=== PATIENT | female | born 1945 | race Caucasian/White ===

== ENCOUNTER → 2017-04-09 | Outpatient (CLI) | payer MEDICARE ==
[~2017-04-09] MED LIST: ACET65TA OR; ASPI325T OR; BISA10SU2 RE; BISA5TA OR; COLA100C2 OR; LEVO100T7 OR; LIDO5DIS EX; LISI40TA OR; MILKSUS OR; MULTIVIT OR; PEPC20TA2 OR; SIMV20TA2 OR; SYNT100T OR; TERA5CAP OR; metamucil OR
--- NOTE | 2017-04-09 10:17 | REP ---
MR angiography the brain without contrast: History: Cerebral aneurysm. Comparison MR angiography is from December 18, 2015. Technique: 3-D [id number] MR angiography of the brain is acquired in the usual fashion and maximal intensity projection images were generated in rotational format about the vertical and horizontal axes. In addition, source axial T1-weighted images are viewed in cine mode. MR angiographic findings: The distal vertebral arteries are patent and co-dominant. Basilar artery is a little tortuous but widely patent. The posterior cerebral and superior cerebellar vessels are normal and symmetric. The distal internal carotid arteries are unremarkable. Eastman aneurysms are again seen involving the middle cerebral arteries bilaterally. The largest of these on the left measures 4 mm in greatest diameter. On the left, there is also a 3 mm eastman aneurysm. On the right, the aneurysm is again seen measuring 3 mm. These are unchanged from comparison MR angiography of December 18, 2015. Impression: Bilateral middle cerebral artery eastman aneurysms, two on the left and one on the right again seen unchanged from the comparison MRA study. Otherwise unremarkable MR angiography of the brain. Signed by Jaime Marie MD 04/09/2017 03:22 P
== END ==
LOC: M RAD 09:06
PROVIDERS: ATTEND Neurological Surgery
DX: I67.1 Cerebral aneurysm, nonruptured (principal)

== ENCOUNTER → 2017-08-05 | Outpatient (CLI) | payer MEDICARE ==
--- NOTE | 2017-08-05 17:54 | REP ---
Left hip: Two views: History: Left hip pain. Findings: AP and frog-leg views of the left hip demonstrate smooth rounded femoral head and intact hip joint space. Periarticular soft tissues are unremarkable. No erosive changes seen. No fracture is noted. There is mild diffuse osteopenia. Impression: Diffuse osteopenia. Otherwise negative left hip radiographs. Signed by Jaime Marie MD 08/06/2017 02:17 P
== END ==
LOC: M ADAMS 16:35
PROVIDERS: ATTEND Physician Assistant Medical
DX: M85.88 Other specified disorders of bone density and structure, other site (principal); E78.4 Other hyperlipidemia; E03.9 Hypothyroidism, unspecified; I67.1 Cerebral aneurysm, nonruptured; I11.0 Hypertensive heart disease with heart failure; I50.32 Chronic diastolic (congestive) heart failure; R73.01 Impaired fasting glucose; M25.552 Pain in left hip; Z87.891 Personal history of nicotine dependence; Z86.73 Personal history of transient ischemic attack (TIA), and cerebral infarction without residual deficits

== ENCOUNTER → 2017-08-05 | Outpatient (REF) | payer MEDICARE ==
[2017-08-05 21:00] LABS: BASO # 0.1 10^3/uL (0.0-0.2); BASO % 0.8 % (0.0-1.0); EOS # 0.1 10^3/uL (0.0-0.50); EOS % 1.1 % (0.0-3.0); IMMATURE GRANULOCYTE % 0.5 % (0-0); LYMPH # 2.1 10^3/uL (1.5-4.5); LYMPH % 27.8 % (24.0-44.0); MEAN CORPUSCULAR HEMOGLOBIN 31.6 pg (27.0-33.0); MEAN CORPUSCULAR HGB CONC 33.6 g/dl (32.0-36.5); MEAN CORPUSCULAR VOLUME 94.1 fl (80.0-96.0); MONO # 0.6 10^3/uL (0.0-0.8); MONO % 8.4 % (0.0-5.0); NEUTROPHILS # 4.6 10^3/uL (1.8-7.7); NEUTROPHILS % 61.4 % (36.0-66.0); PLATELET COUNT, AUTOMATED 341 10^3/uL (150-450); RED CELL DISTRIBUTION WIDTH 12.7 % (11.5-14.5); WHITE BLOOD COUNT 7.5 10^3/uL (4.0-10.0)
[2017-08-05 21:31] LABS: ALBUMIN 3.7 GM/DL (3.2-5.2); ALBUMIN/GLOBULIN RATIO 1.06 (1.00-1.93); BILIRUBIN,TOTAL 0.3 MG/DL (0.2-1.0); CALCIUM LEVEL 9.1 MG/DL (8.8-10.2); CREATININE FOR GFR 1.03 MG/DL (0.55-1.02); FREE T4 1.07 NG/DL (0.76-1.46); GLOMERULAR FILTRATION RATE 55.9 (>39); POTASSIUM SERUM 4.4 MEQ/L (3.5-5.1); TOTAL PROTEIN 7.2 GM/DL (6.4-8.2)
== END ==
LOC: M SFHCADAM 16:21
PROVIDERS: ATTEND Physician Assistant Medical
DX: E78.4 Other hyperlipidemia (principal); E03.9 Hypothyroidism, unspecified; I67.1 Cerebral aneurysm, nonruptured; R73.01 Impaired fasting glucose

== ENCOUNTER 2018-05-08 17:13 | Inpatient (IN) | payer MEDICARE ==
[2018-05-08] MEDS: ACETAMINOPHEN TAB 650MG DOSE (2X325MG) PO (18:55)
[2018-05-08] MEDS: PANTOPRAZOLE 40MG INJ (PROTONIX) (C9113) IV (20:09)
[2018-05-08] MEDS: KCL 20MEQ in NS 1000ML 1,000 ML IV (20:10)
[2018-05-09] MEDS: ONDANSETRON 4MG/2ML VIAL (J2405) IV ×3 (03:00→17:45)
[2018-05-09] MEDS: LEVOTHYROXINE 75MCG TABLET (0.075MG) PO (06:02)
[2018-05-09 06:27] LABS: BASO # 0.1 10^3/uL (0.0-0.2); BASO % 0.7 % (0.0-1.0); EOS # 0.1 10^3/uL (0.0-0.50); EOS % 0.6 % (0.0-3.0); HEMATOCRIT 29.4 % (36.0-47.0); HEMOGLOBIN 9.6 g/dl (12.0-15.5); IMMATURE GRANULOCYTE % 0.7 % (0-3.0); LYMPH # 1.2 10^3/uL (1.5-4.5); LYMPH % 13.4 % (24.0-44.0); MEAN CORPUSCULAR HEMOGLOBIN 28.1 pg (27.0-33.0); MEAN CORPUSCULAR HGB CONC 32.7 g/dl (32.0-36.5); MONO # 0.9 10^3/uL (0.0-0.8); MONO % 10.6 % (0.0-5.0); NEUTROPHILS # 6.5 10^3/uL (1.8-7.7); RED BLOOD COUNT 3.42 10^6/uL (4.00-5.40); WHITE BLOOD COUNT 8.8 10^3/uL (4.0-10.0)
[2018-05-09 06:47] LABS: PLATELET COUNT, AUTOMATED 437 10^3/uL (150-450)
[2018-05-09 07:03] LABS: ALBUMIN 2.4 GM/DL (3.2-5.2); ALBUMIN/GLOBULIN RATIO 0.55 (1.00-1.93); ALKALINE PHOSPHATASE 110 U/L (45-117); ALT/SGPT 11 U/L (12-78); ANION GAP 8 MEQ/L (8-16); AST/SGOT 9 U/L (7-37); BILIRUBIN,TOTAL 0.3 MG/DL (0.2-1.0); BLOOD UREA NITROGEN 23 MG/DL (7-18); CALCIUM LEVEL 8.4 MG/DL (8.8-10.2); CARBON DIOXIDE LEVEL 28 MEQ/L (21-32); CHLORIDE LEVEL 107 MEQ/L (98-107); CREATININE FOR GFR 1.61 MG/DL (0.55-1.30); GLOMERULAR FILTRATION RATE 33.3 (>39); GLUCOSE, FASTING 92 MG/DL (70-100); POTASSIUM SERUM 3.6 MEQ/L (3.5-5.1); SODIUM LEVEL 143 MEQ/L (136-145); THYROID STIMULATING HORMONE 0.571 uIU/ML (0.358-3.740); TOTAL PROTEIN 6.8 GM/DL (6.4-8.2)
[2018-05-09] MEDS: ACETAMINOPHEN TAB 650MG DOSE (2X325MG) PO ×2 (09:11→14:45)
[2018-05-09] MEDS: amLODIPine 5 MG TAB PO (09:12)
[2018-05-09] MEDS: ENOXAPARIN 30 MG/0.3 ML SYR (J1650) SC (09:12)
[2018-05-09] MEDS: KCL 20MEQ in NS 1000ML 1,000 ML IV (12:47)
[2018-05-09] MEDS: NS 1,000 ML IV (15:08)
[2018-05-09 16:11] LABS: KETONE, URINE AUTO RFX NEGATIVE (NEGATIVE); NITRITE, URINE AUTO RFX NEGATIVE (NEGATIVE); RBC, URINE AUTO RFX 3 /HPF (0-3); SPECIFIC GRAVITY UR AUTO RFX 1.008 (1.002-1.035); SQUAM EPITHELIAL CELL UR AURFX 1 /HPF (0-6); TRANSITIONAL EPITHELIAL AU RFX <1 /HPF
[2018-05-09 16:31] LABS: LEUKOCYTE ESTERASE UR AUTO RFX TRACE (NEGATIVE); WBC, URINE AUTO RFX 15 /HPF (0-3)
[2018-05-09] MEDS: ATORVASTATIN 20 MG TAB PO (17:46)
[2018-05-09] MEDS: PANTOPRAZOLE 40MG INJ (PROTONIX) (C9113) IV (21:31)
[2018-05-10] MEDS: ONDANSETRON 4MG/2ML VIAL (J2405) IV ×2 (01:14→18:43)
[2018-05-10] MEDS: LEVOTHYROXINE 75MCG TABLET (0.075MG) PO (05:42)
[2018-05-10 06:03] LABS: BASO # 0.1 10^3/uL (0.0-0.2); BASO % 0.6 % (0.0-1.0); EOS # 0.1 10^3/uL (0.0-0.50); EOS % 1.2 % (0.0-3.0); HEMATOCRIT 27.9 % (36.0-47.0); IMMATURE GRANULOCYTE % 0.6 % (0-3.0); LYMPH # 1.2 10^3/uL (1.5-4.5); LYMPH % 14.4 % (24.0-44.0); MEAN CORPUSCULAR HGB CONC 32.3 g/dl (32.0-36.5); MEAN CORPUSCULAR VOLUME 86.6 fl (80.0-96.0); MONO # 0.8 10^3/uL (0.0-0.8); NEUTROPHILS # 6.3 10^3/uL (1.8-7.7); NEUTROPHILS % 74.2 % (36.0-66.0); PLATELET COUNT, AUTOMATED 386 10^3/uL (150-450); RED BLOOD COUNT 3.22 10^6/uL (4.00-5.40); WHITE BLOOD COUNT 8.5 10^3/uL (4.0-10.0)
[2018-05-10] MEDS: ACETAMINOPHEN TAB 650MG DOSE (2X325MG) PO ×3 (06:08→22:02)
[2018-05-10 06:33] LABS: ALBUMIN 2.1 GM/DL (3.2-5.2); ALBUMIN/GLOBULIN RATIO 0.48 (1.00-1.93); ALKALINE PHOSPHATASE 104 U/L (45-117); ALT/SGPT 11 U/L (12-78); ANION GAP 8 MEQ/L (8-16); AST/SGOT 9 U/L (7-37); BILIRUBIN,TOTAL 0.2 MG/DL (0.2-1.0); BLOOD UREA NITROGEN 21 MG/DL (7-18); CALCIUM LEVEL 8.2 MG/DL (8.8-10.2); CARBON DIOXIDE LEVEL 25 MEQ/L (21-32); CHLORIDE LEVEL 110 MEQ/L (98-107); CREATININE FOR GFR 1.66 MG/DL (0.55-1.30); GLOMERULAR FILTRATION RATE 32.1 (>39); GLUCOSE, FASTING 103 MG/DL (70-100); POTASSIUM SERUM 3.3 MEQ/L (3.5-5.1); SODIUM LEVEL 143 MEQ/L (136-145); TOTAL PROTEIN 6.5 GM/DL (6.4-8.2)
[2018-05-10] MEDS: PROMETHAZINE INJ 25 MG/ML VIAL (J2550) IV (08:20)
[2018-05-10] MEDS: ATORVASTATIN 20 MG TAB PO (08:21)
[2018-05-10] MEDS: ENOXAPARIN 30 MG/0.3 ML SYR (J1650) SC (08:21)
[2018-05-10] MEDS: amLODIPine 5 MG TAB PO (08:22)
[2018-05-10] MEDS: KCL 20MEQ IN 0.45NS 1000ML 1,000 ML IV ×2 (09:49→20:29)
[2018-05-10] MEDS: PANTOPRAZOLE 40MG INJ (PROTONIX) (C9113) IV (20:29)
[2018-05-11] MEDS: LEVOTHYROXINE 75MCG TABLET (0.075MG) PO (05:30)
[2018-05-11 05:52] LABS: BASO # 0.1 10^3/uL (0.0-0.2); BASO % 0.6 % (0.0-1.0); EOS # 0.1 10^3/uL (0.0-0.50); EOS % 1.4 % (0.0-3.0); HEMATOCRIT 28.7 % (36.0-47.0); HEMOGLOBIN 9.3 g/dl (12.0-15.5); IMMATURE GRANULOCYTE % 0.4 % (0-3.0); LYMPH # 1.4 10^3/uL (1.5-4.5); LYMPH % 15.1 % (24.0-44.0); MEAN CORPUSCULAR HGB CONC 32.4 g/dl (32.0-36.5); MEAN CORPUSCULAR VOLUME 86.4 fl (80.0-96.0); MONO # 0.9 10^3/uL (0.0-0.8); MONO % 9.7 % (0.0-5.0); NEUTROPHILS # 6.6 10^3/uL (1.8-7.7); NEUTROPHILS % 72.8 % (36.0-66.0); PLATELET COUNT, AUTOMATED 376 10^3/uL (150-450); RED BLOOD COUNT 3.32 10^6/uL (4.00-5.40); WHITE BLOOD COUNT 9.1 10^3/uL (4.0-10.0)
[2018-05-11 06:08] LABS: ALBUMIN 2.2 GM/DL (3.2-5.2); ALBUMIN/GLOBULIN RATIO 0.49 (1.00-1.93); ALKALINE PHOSPHATASE 106 U/L (45-117); ALT/SGPT 13 U/L (12-78); ANION GAP 8 MEQ/L (8-16); AST/SGOT 10 U/L (7-37); BILIRUBIN,TOTAL 0.2 MG/DL (0.2-1.0); BLOOD UREA NITROGEN 19 MG/DL (7-18); CALCIUM LEVEL 7.9 MG/DL (8.8-10.2); CARBON DIOXIDE LEVEL 26 MEQ/L (21-32); CHLORIDE LEVEL 111 MEQ/L (98-107); CREATININE FOR GFR 1.46 MG/DL (0.55-1.30); GLOMERULAR FILTRATION RATE 37.3 (>39); GLUCOSE, FASTING 84 MG/DL (70-100); POTASSIUM SERUM 3.8 MEQ/L (3.5-5.1); SODIUM LEVEL 145 MEQ/L (136-145); TOTAL PROTEIN 6.7 GM/DL (6.4-8.2)
[2018-05-11] MEDS: KCL 20MEQ IN 0.45NS 1000ML 1,000 ML IV ×2 (06:36→16:37)
[2018-05-11] MEDS: ACETAMINOPHEN TAB 650MG DOSE (2X325MG) PO ×2 (06:37→20:41)
[2018-05-11] MEDS: amLODIPine 5 MG TAB PO (09:03)
[2018-05-11] MEDS: ENOXAPARIN 30 MG/0.3 ML SYR (J1650) SC (09:03)
[2018-05-11] MEDS: ATORVASTATIN 20 MG TAB PO (09:04)
[2018-05-11] MEDS ORDERED: LIDOCAINE 5% (LIDODERM) PATCH TD (09:45)
[2018-05-11] MEDS: LIDOCAINE 5% (LIDODERM) PATCH TD ×2 (10:45→18:11)
[2018-05-11] MEDS: ONDANSETRON 4MG/2ML VIAL (J2405) IV ×2 (12:30→20:42)
[2018-05-11] MEDS: PANTOPRAZOLE 40MG INJ (PROTONIX) (C9113) IV (20:42)
[2018-05-11] MEDS: **NOTE PATIENT COMMENT** MISC XX (20:42)
[2018-05-11] MEDS ORDERED: **NOTE PATIENT COMMENT** MISC XX ×3 (21:00)
[2018-05-12] MEDS: KCL 20MEQ IN 0.45NS 1000ML 1,000 ML IV ×3 (02:10→22:43)
[2018-05-12] MEDS: LEVOTHYROXINE 75MCG TABLET (0.075MG) PO (05:32)
[2018-05-12] MEDS: ONDANSETRON 4MG/2ML VIAL (J2405) IV ×3 (05:32→20:23)
[2018-05-12 06:22] LABS: BASO % 0.4 % (0.0-1.0); EOS # 0.1 10^3/uL (0.0-0.50); EOS % 1.1 % (0.0-3.0); HEMATOCRIT 28.8 % (36.0-47.0); HEMOGLOBIN 9.3 g/dl (12.0-15.5); IMMATURE GRANULOCYTE % 0.7 % (0-3.0); LYMPH # 1.2 10^3/uL (1.5-4.5); LYMPH % 12.1 % (24.0-44.0); MEAN CORPUSCULAR HEMOGLOBIN 27.9 pg (27.0-33.0); MEAN CORPUSCULAR HGB CONC 32.3 g/dl (32.0-36.5); MEAN CORPUSCULAR VOLUME 86.5 fl (80.0-96.0); MONO # 0.8 10^3/uL (0.0-0.8); MONO % 7.7 % (0.0-5.0); NEUTROPHILS # 7.6 10^3/uL (1.8-7.7); PLATELET COUNT, AUTOMATED 389 10^3/uL (150-450); RED BLOOD COUNT 3.33 10^6/uL (4.00-5.40); WHITE BLOOD COUNT 9.8 10^3/uL (4.0-10.0)
[2018-05-12 06:41] LABS: ALBUMIN 2.2 GM/DL (3.2-5.2); ALBUMIN/GLOBULIN RATIO 0.49 (1.00-1.93); ALKALINE PHOSPHATASE 110 U/L (45-117); ALT/SGPT 13 U/L (12-78); ANION GAP 10 MEQ/L (8-16); AST/SGOT 9 U/L (7-37); BILIRUBIN,TOTAL 0.4 MG/DL (0.2-1.0); BLOOD UREA NITROGEN 14 MG/DL (7-18); CALCIUM LEVEL 7.7 MG/DL (8.8-10.2); CARBON DIOXIDE LEVEL 25 MEQ/L (21-32); CHLORIDE LEVEL 109 MEQ/L (98-107); CREATININE FOR GFR 1.29 MG/DL (0.55-1.30); GLUCOSE, FASTING 85 MG/DL (70-100); POTASSIUM SERUM 3.7 MEQ/L (3.5-5.1); SODIUM LEVEL 144 MEQ/L (136-145); TOTAL PROTEIN 6.7 GM/DL (6.4-8.2)
[2018-05-12] MEDS: ENOXAPARIN 30 MG/0.3 ML SYR (J1650) SC ×2 (08:42→09:43)
[2018-05-12] MEDS: ATORVASTATIN 20 MG TAB PO (09:42)
[2018-05-12] MEDS: amLODIPine 5 MG TAB PO (09:43)
[2018-05-12] MEDS: LIDOCAINE 5% (LIDODERM) PATCH TD (09:45)
[2018-05-12] MEDS: GOLYTELY SOLN 4000 ML BTL PO (10:06)
[2018-05-12] MEDS: PROMETHAZINE INJ 25 MG/ML VIAL (J2550) IV ×2 (15:07→22:13)
[2018-05-12] MEDS: ACETAMINOPHEN TAB 650MG DOSE (2X325MG) PO ×2 (15:19→20:23)
[2018-05-12] MEDS: **NOTE PATIENT COMMENT** MISC XX (20:23)
[2018-05-12] MEDS: PANTOPRAZOLE 40MG INJ (PROTONIX) (C9113) IV (20:23)
[2018-05-13] MEDS: LEVOTHYROXINE 75MCG TABLET (0.075MG) PO (05:35)
[2018-05-13] MEDS: ATORVASTATIN 20 MG TAB PO (08:35)
[2018-05-13] MEDS: amLODIPine 5 MG TAB PO (08:36)
[2018-05-13] MEDS: LIDOCAINE 5% (LIDODERM) PATCH TD (08:37)
[2018-05-13] MEDS: ENOXAPARIN 30 MG/0.3 ML SYR (J1650) SC (08:37)
[2018-05-13] MEDS: KCL 20MEQ IN 0.45NS 1000ML 1,000 ML IV ×2 (09:49→20:57)
[2018-05-13 11:00] LABS: ANION GAP 10 MEQ/L (8-16); BLOOD UREA NITROGEN 9 MG/DL (7-18); CALCIUM LEVEL 6.9 MG/DL (8.8-10.2); CARBON DIOXIDE LEVEL 25 MEQ/L (21-32); CHLORIDE LEVEL 106 MEQ/L (98-107); CREATININE FOR GFR 1.06 MG/DL (0.55-1.30); GLOMERULAR FILTRATION RATE 53.9 (>39); GLUCOSE, FASTING 82 MG/DL (70-100); POTASSIUM SERUM 3.7 MEQ/L (3.5-5.1); SODIUM LEVEL 141 MEQ/L (136-145)
[2018-05-13 11:09] LABS: HEMATOCRIT 28.7 % (36.0-47.0); HEMOGLOBIN 9.5 g/dl (12.0-15.5); MEAN CORPUSCULAR HEMOGLOBIN 28.3 pg (27.0-33.0); MEAN CORPUSCULAR HGB CONC 33.1 g/dl (32.0-36.5); MEAN CORPUSCULAR VOLUME 85.4 fl (80.0-96.0); PLATELET COUNT, AUTOMATED 370 10^3/uL (150-450); RED BLOOD COUNT 3.36 10^6/uL (4.00-5.40); RED CELL DISTRIBUTION WIDTH 13.9 % (11.5-14.5); WHITE BLOOD COUNT 10.2 10^3/uL (4.0-10.0)
[2018-05-13] MEDS ORDERED: LIDOCAINE 1% MDV 20ML VIAL As Ordered (12:47)
[2018-05-13] MEDS ORDERED: LIDOCAINE 2% INJ 100 MG/5 ML SDV (FOR ANES.) As Ordered (15:13)
[2018-05-13] MEDS ORDERED: PROPOFOL 200 MG/20 ML VIAL As Ordered (15:13)
[2018-05-13] MEDS ORDERED: fentaNYL 100 MCG/2 ML INJECTION (J3010) As Ordered (15:15)
[2018-05-13] MEDS: ACETAMINOPHEN TAB 650MG DOSE (2X325MG) PO (17:18)
[2018-05-13] MEDS: **NOTE PATIENT COMMENT** MISC XX (20:57)
[2018-05-13] MEDS: ONDANSETRON 4MG/2ML VIAL (J2405) IV (20:57)
[2018-05-13] MEDS: PANTOPRAZOLE 40MG INJ (PROTONIX) (C9113) IV (20:57)
[2018-05-14] MEDS: ONDANSETRON 4MG/2ML VIAL (J2405) IV (03:57)
[2018-05-14] MEDS: KCL 20MEQ IN 0.45NS 1000ML 1,000 ML IV (05:41)
[2018-05-14] MEDS: LEVOTHYROXINE 75MCG TABLET (0.075MG) PO (05:41)
[2018-05-14] MEDS: PROMETHAZINE INJ 25 MG/ML VIAL (J2550) IV (05:42)
[2018-05-14] MEDS: ATORVASTATIN 20 MG TAB PO (09:28)
[2018-05-14] MEDS: amLODIPine 5 MG TAB PO (09:28)
[2018-05-14] MEDS: ENOXAPARIN 30 MG/0.3 ML SYR (J1650) SC (09:29)
[2018-05-14] MEDS: LIDOCAINE 5% (LIDODERM) PATCH TD (09:29)
[2018-05-14 12:24] LABS: BASO # 0.1 10^3/uL (0.0-0.2); BASO % 0.6 % (0.0-1.0); EOS # 0.1 10^3/uL (0.0-0.50); EOS % 0.7 % (0.0-3.0); HEMOGLOBIN 10.2 g/dl (12.0-15.5); LYMPH # 1.2 10^3/uL (1.5-4.5); LYMPH % 12.7 % (24.0-44.0); MEAN CORPUSCULAR HGB CONC 32.9 g/dl (32.0-36.5); MEAN CORPUSCULAR VOLUME 85.2 fl (80.0-96.0); MONO # 0.9 10^3/uL (0.0-0.8); MONO % 9.6 % (0.0-5.0); NEUTROPHILS # 7.1 10^3/uL (1.8-7.7); NEUTROPHILS % 75.4 % (36.0-66.0); PLATELET COUNT, AUTOMATED 402 10^3/uL (150-450); RED BLOOD COUNT 3.64 10^6/uL (4.00-5.40); RED CELL DISTRIBUTION WIDTH 14.1 % (11.5-14.5); WHITE BLOOD COUNT 9.4 10^3/uL (4.0-10.0)
[2018-05-14 12:58] LABS: ANION GAP 10 MEQ/L (8-16); BLOOD UREA NITROGEN 11 MG/DL (7-18); CALCIUM LEVEL 6.9 MG/DL (8.8-10.2); CARBON DIOXIDE LEVEL 24 MEQ/L (21-32); CHLORIDE LEVEL 105 MEQ/L (98-107); CREATININE FOR GFR 1.18 MG/DL (0.55-1.30); GLOMERULAR FILTRATION RATE 47.7 (>39); GLUCOSE, FASTING 111 MG/DL (70-100); POTASSIUM SERUM 3.6 MEQ/L (3.5-5.1); SODIUM LEVEL 139 MEQ/L (136-145)
[2018-05-14] MEDS: ACETAMINOPHEN TAB 650MG DOSE (2X325MG) PO (16:40)
[2018-05-14] MEDS: PANTOPRAZOLE 40MG INJ (PROTONIX) (C9113) IV (20:46)
[2018-05-14] MEDS: **NOTE PATIENT COMMENT** MISC XX (20:46)
[2018-05-15] MEDS: LEVOTHYROXINE 75MCG TABLET (0.075MG) PO (06:11)
[2018-05-15] MEDS: ACETAMINOPHEN TAB 650MG DOSE (2X325MG) PO ×2 (06:11→14:49)
[2018-05-15 06:21] LABS: HEMATOCRIT 27.2 % (36.0-47.0); HEMOGLOBIN 9.2 g/dl (12.0-15.5); MEAN CORPUSCULAR HEMOGLOBIN 28.7 pg (27.0-33.0); MEAN CORPUSCULAR HGB CONC 33.8 g/dl (32.0-36.5); MEAN CORPUSCULAR VOLUME 84.7 fl (80.0-96.0); PLATELET COUNT, AUTOMATED 369 10^3/uL (150-450); RED BLOOD COUNT 3.21 10^6/uL (4.00-5.40); RED CELL DISTRIBUTION WIDTH 14.1 % (11.5-14.5); WHITE BLOOD COUNT 8.4 10^3/uL (4.0-10.0)
[2018-05-15 06:36] LABS: ANION GAP 10 MEQ/L (8-16); BLOOD UREA NITROGEN 11 MG/DL (7-18); CALCIUM LEVEL 7.5 MG/DL (8.8-10.2); CARBON DIOXIDE LEVEL 25 MEQ/L (21-32); CHLORIDE LEVEL 107 MEQ/L (98-107); CREATININE FOR GFR 1.26 MG/DL (0.55-1.30); GLOMERULAR FILTRATION RATE 44.2 (>39); GLUCOSE, FASTING 95 MG/DL (70-100); POTASSIUM SERUM 3.1 MEQ/L (3.5-5.1); SODIUM LEVEL 142 MEQ/L (136-145)
[2018-05-15] MEDS: ENOXAPARIN 30 MG/0.3 ML SYR (J1650) SC (09:00)
[2018-05-15] MEDS: ATORVASTATIN 20 MG TAB PO (10:34)
[2018-05-15] MEDS: POTASSIUM CHLORIDE 10 MEQ SR TABLET PO (10:34)
[2018-05-15] MEDS: amLODIPine 5 MG TAB PO (10:35)
[2018-05-15] MEDS ORDERED: LIDOCAINE 1% MDV 20ML VIAL As Ordered (15:20)
[2018-05-15] MEDS ORDERED: PROMETHAZINE 25 MG TAB PO (16:15)
[2018-05-15] MEDS: LIDOCAINE 5% (LIDODERM) PATCH TD (17:15)
[2018-05-15] MEDS: PANTOPRAZOLE 40MG TAB (PROTONIX) PO (17:38)
[2018-05-15] MEDS: ONDANSETRON 4 MG TAB (S0181) PO (21:18)
[2018-05-16] MEDS: **NOTE PATIENT COMMENT** MISC XX ×2 (05:43→21:00)
[2018-05-16] MEDS: LEVOTHYROXINE 75MCG TABLET (0.075MG) PO (05:45)
[2018-05-16] MEDS: ONDANSETRON 4 MG TAB (S0181) PO ×3 (05:45→20:29)
[2018-05-16 06:08] LABS: HEMOGLOBIN 8.8 g/dl (12.0-15.5); MEAN CORPUSCULAR HEMOGLOBIN 27.5 pg (27.0-33.0); MEAN CORPUSCULAR HGB CONC 32.6 g/dl (32.0-36.5); MEAN CORPUSCULAR VOLUME 84.4 fl (80.0-96.0); PLATELET COUNT, AUTOMATED 389 10^3/uL (150-450); WHITE BLOOD COUNT 9.4 10^3/uL (4.0-10.0)
[2018-05-16 06:29] LABS: ANION GAP 9 MEQ/L (8-16); BLOOD UREA NITROGEN 10 MG/DL (7-18); CALCIUM LEVEL 7.9 MG/DL (8.8-10.2); CARBON DIOXIDE LEVEL 26 MEQ/L (21-32); CHLORIDE LEVEL 107 MEQ/L (98-107); CREATININE FOR GFR 1.28 MG/DL (0.55-1.30); GLOMERULAR FILTRATION RATE 43.4 (>39); GLUCOSE, FASTING 95 MG/DL (70-100); POTASSIUM SERUM 3.5 MEQ/L (3.5-5.1); SODIUM LEVEL 142 MEQ/L (136-145)
[2018-05-16] MEDS: ATORVASTATIN 20 MG TAB PO (09:24)
[2018-05-16] MEDS: PANTOPRAZOLE 40MG TAB (PROTONIX) PO (09:24)
[2018-05-16] MEDS: POTASSIUM CHLORIDE 10 MEQ SR TABLET PO (09:24)
[2018-05-16] MEDS: ENOXAPARIN 30 MG/0.3 ML SYR (J1650) SC (09:25)
[2018-05-16] MEDS: amLODIPine 5 MG TAB PO (09:25)
[2018-05-16] MEDS: ACETAMINOPHEN TAB 650MG DOSE (2X325MG) PO ×2 (09:37→20:37)
[2018-05-16] MEDS ORDERED: PILL CRUSHER/CUTTER 1 EACH XX (10:45)
[2018-05-16] MEDS: PROMETHAZINE 25 MG TAB PO ×3 (11:53→20:29)
[2018-05-16] MEDS: LIDOCAINE 5% (LIDODERM) PATCH TD (17:49)
[2018-05-17] MEDS: LEVOTHYROXINE 75MCG TABLET (0.075MG) PO (05:46)
[2018-05-17] MEDS: PANTOPRAZOLE 40MG TAB (PROTONIX) PO (08:39)
[2018-05-17] MEDS: ENOXAPARIN 30 MG/0.3 ML SYR (J1650) SC (08:39)
[2018-05-17] MEDS: POTASSIUM CHLORIDE 10 MEQ SR TABLET PO (08:39)
[2018-05-17] MEDS: ONDANSETRON 4 MG TAB (S0181) PO ×3 (08:40→20:44)
[2018-05-17] MEDS: ATORVASTATIN 20 MG TAB PO (08:40)
[2018-05-17] MEDS: amLODIPine 5 MG TAB PO (08:40)
[2018-05-17] MEDS: PROMETHAZINE 25 MG TAB PO ×3 (08:41→20:44)
[2018-05-17] MEDS: ACETAMINOPHEN TAB 650MG DOSE (2X325MG) PO (10:08)
[2018-05-17] MEDS: IBUPROFEN 400 MG TAB PO (16:20)
[2018-05-17] MEDS: LIDOCAINE 5% (LIDODERM) PATCH TD (20:45)
[2018-05-18] MEDS: LEVOTHYROXINE 75MCG TABLET (0.075MG) PO (05:51)
[2018-05-18] MEDS: POTASSIUM CHLORIDE 10 MEQ SR TABLET PO (08:50)
[2018-05-18] MEDS: PROMETHAZINE 25 MG TAB PO ×3 (08:50→20:33)
[2018-05-18] MEDS: ATORVASTATIN 20 MG TAB PO (08:50)
[2018-05-18] MEDS: amLODIPine 5 MG TAB PO (08:50)
[2018-05-18] MEDS: **NOTE PATIENT COMMENT** MISC XX (08:51)
[2018-05-18] MEDS: ONDANSETRON 4 MG TAB (S0181) PO ×3 (08:51→20:33)
[2018-05-18] MEDS: ENOXAPARIN 30 MG/0.3 ML SYR (J1650) SC (08:51)
[2018-05-18] MEDS: PANTOPRAZOLE 40MG TAB (PROTONIX) PO (08:51)
[2018-05-18 10:49] LABS: HEMATOCRIT 28.5 % (36.0-47.0); HEMOGLOBIN 9.2 g/dl (12.0-15.5); MEAN CORPUSCULAR HEMOGLOBIN 27.7 pg (27.0-33.0); MEAN CORPUSCULAR HGB CONC 32.3 g/dl (32.0-36.5); MEAN CORPUSCULAR VOLUME 85.8 fl (80.0-96.0); PLATELET COUNT, AUTOMATED 423 10^3/uL (150-450); RED BLOOD COUNT 3.32 10^6/uL (4.00-5.40); RED CELL DISTRIBUTION WIDTH 14.3 % (11.5-14.5); WHITE BLOOD COUNT 9.1 10^3/uL (4.0-10.0)
[2018-05-18] MEDS: IBUPROFEN 400 MG TAB PO (11:04)
[2018-05-18 11:05] LABS: ANION GAP 6 MEQ/L (8-16); BLOOD UREA NITROGEN 15 MG/DL (7-18); CALCIUM LEVEL 8.3 MG/DL (8.8-10.2); CARBON DIOXIDE LEVEL 30 MEQ/L (21-32); CHLORIDE LEVEL 106 MEQ/L (98-107); CREATININE FOR GFR 1.55 MG/DL (0.55-1.30); GLOMERULAR FILTRATION RATE 34.8 (>39); GLUCOSE, FASTING 133 MG/DL (70-100); POTASSIUM SERUM 4.2 MEQ/L (3.5-5.1); SODIUM LEVEL 142 MEQ/L (136-145)
[2018-05-18] MEDS: LIDOCAINE 5% (LIDODERM) PATCH TD (20:33)
[2018-05-18 20:46] LABS: KETONE, URINE AUTO RFX NEGATIVE (NEGATIVE); LEUKOCYTE ESTERASE UR AUTO RFX 3+ (NEGATIVE); MUCUS, URINE RFX SMALL (NEGATIVE); NITRITE, URINE AUTO RFX NEGATIVE (NEGATIVE); RBC, URINE AUTO RFX 9 /HPF (0-3); SQUAM EPITHELIAL CELL UR AURFX 2 /HPF (0-6); TRANSITIONAL EPITHELIAL AU RFX <1 /HPF; WBC, URINE AUTO RFX 38 /HPF (0-3)
[2018-05-19] MEDS: IBUPROFEN 400 MG TAB PO ×2 (05:17→21:21)
[2018-05-19] MEDS: LEVOTHYROXINE 75MCG TABLET (0.075MG) PO (05:41)
[2018-05-19] MEDS: ENOXAPARIN 30 MG/0.3 ML SYR (J1650) SC (09:05)
[2018-05-19] MEDS: POTASSIUM CHLORIDE 10 MEQ SR TABLET PO (09:06)
[2018-05-19] MEDS: ATORVASTATIN 20 MG TAB PO (09:06)
[2018-05-19] MEDS: PANTOPRAZOLE 40MG TAB (PROTONIX) PO (09:06)
[2018-05-19] MEDS: PROMETHAZINE 25 MG TAB PO ×3 (09:07→21:14)
[2018-05-19] MEDS: **NOTE PATIENT COMMENT** MISC XX (09:07)
[2018-05-19] MEDS: amLODIPine 5 MG TAB PO (09:07)
[2018-05-19] MEDS: ONDANSETRON 4 MG TAB (S0181) PO ×3 (09:07→21:14)
[2018-05-19] MEDS: LIDOCAINE 5% (LIDODERM) PATCH TD (21:15)
[2018-05-20] MEDS: LEVOTHYROXINE 75MCG TABLET (0.075MG) PO (05:23)
[2018-05-20] MEDS: ACETAMINOPHEN TAB 650MG DOSE (2X325MG) PO (05:28)
[2018-05-20] MEDS: IBUPROFEN 400 MG TAB PO (09:58)
[2018-05-20] MEDS: ATORVASTATIN 20 MG TAB PO (09:58)
[2018-05-20] MEDS: POTASSIUM CHLORIDE 10 MEQ SR TABLET PO (09:58)
[2018-05-20] MEDS: ONDANSETRON 4 MG TAB (S0181) PO (09:59)
[2018-05-20] MEDS: PROMETHAZINE 25 MG TAB PO (09:59)
[2018-05-20] MEDS: PANTOPRAZOLE 40MG TAB (PROTONIX) PO (09:59)
[2018-05-20] MEDS: **NOTE PATIENT COMMENT** MISC XX (10:01)
[2018-05-20] MEDS: ENOXAPARIN 30 MG/0.3 ML SYR (J1650) SC (10:01)
[2018-05-20] MEDS: amLODIPine 5 MG TAB PO (10:01)
== END 2018-05-20 11:49 | disposition home health service (06) | DRG 824 ==
LOC: M MSPAV 17:13
PROC: 0DJ08ZZ Inspection of Upper Intestinal Tract, Via Natural or Artificial Opening Endoscopic (ICD-10-PCS; 2018-05-13 14:15)
PROC: 0DBG8ZX Excision of Left Large Intestine, Via Natural or Artificial Opening Endoscopic, Diagnostic (ICD-10-PCS; 2018-05-13 14:15)
PROC: 07923ZX Drainage of Left Neck Lymphatic, Percutaneous Approach, Diagnostic (ICD-10-PCS; principal; 2018-05-13 15:17)
PROC: 07BD3ZX Excision of Aortic Lymphatic, Percutaneous Approach, Diagnostic (ICD-10-PCS; 2018-05-13 15:17)
DX: C77.2 Secondary and unspecified malignant neoplasm of intra-abdominal lymph nodes (principal); N17.9 Acute kidney failure, unspecified; I69.354 Hemiplegia and hemiparesis following cerebral infarction affecting left non-dominant side; N39.0 Urinary tract infection, site not specified; E46 Unspecified protein-calorie malnutrition; Z66 Do not resuscitate; R11.10 Vomiting, unspecified; K64.0 First degree hemorrhoids; C80.1 Malignant (primary) neoplasm, unspecified; K57.30 Diverticulosis of large intestine without perforation or abscess without bleeding; I11.9 Hypertensive heart disease without heart failure; K44.9 Diaphragmatic hernia without obstruction or gangrene; E87.6 Hypokalemia; M19.90 Unspecified osteoarthritis, unspecified site; M54.9 Dorsalgia, unspecified; E03.9 Hypothyroidism, unspecified; E78.5 Hyperlipidemia, unspecified; Z87.891 Personal history of nicotine dependence; Z79.82 Long term (current) use of aspirin; Z79.899 Other long term (current) drug therapy; Z88.0 Allergy status to penicillin; Z68.21 Body mass index [BMI] 21.0-21.9, adult

== ENCOUNTER → 2018-05-08 | Outpatient (REF) | payer MEDICARE ==
[2018-05-08 13:02] LABS: BASO # 0.1 10^3/uL (0.0-0.2); BASO % 0.8 % (0.0-1.0); EOS % 0.3 % (0.0-3.0); HEMATOCRIT 34.1 % (36.0-47.0); HEMOGLOBIN 11.2 g/dl (12.0-15.5); IMMATURE GRANULOCYTE % 0.6 % (0-3.0); LYMPH # 1.2 10^3/uL (1.5-4.5); MEAN CORPUSCULAR HEMOGLOBIN 27.8 pg (27.0-33.0); MEAN CORPUSCULAR HGB CONC 32.8 g/dl (32.0-36.5); MEAN CORPUSCULAR VOLUME 84.6 fl (80.0-96.0); MONO # 0.9 10^3/uL (0.0-0.8); MONO % 8.4 % (0.0-5.0); NEUTROPHILS # 7.9 10^3/uL (1.8-7.7); NEUTROPHILS % 77.9 % (36.0-66.0); PLATELET COUNT, AUTOMATED 567 10^3/uL (150-450); RED BLOOD COUNT 4.03 10^6/uL (4.00-5.40); WHITE BLOOD COUNT 10.2 10^3/uL (4.0-10.0)
[2018-05-08 13:42] LABS: ALBUMIN 2.9 GM/DL (3.2-5.2); ALBUMIN/GLOBULIN RATIO 0.64 (1.00-1.93); ALKALINE PHOSPHATASE 137 U/L (45-117); ALT/SGPT 13 U/L (12-78); ANION GAP 11 MEQ/L (8-16); AST/SGOT 10 U/L (7-37); BILIRUBIN,TOTAL 0.3 MG/DL (0.2-1.0); BLOOD UREA NITROGEN 30 MG/DL (7-18); CALCIUM LEVEL 8.9 MG/DL (8.8-10.2); CARBON DIOXIDE LEVEL 28 MEQ/L (21-32); CHLORIDE LEVEL 101 MEQ/L (98-107); CREATININE FOR GFR 1.93 MG/DL (0.55-1.30); GLUCOSE, FASTING 147 MG/DL (70-100); POTASSIUM SERUM 3.6 MEQ/L (3.5-5.1); SODIUM LEVEL 140 MEQ/L (136-145); TOTAL PROTEIN 7.4 GM/DL (6.4-8.2)
== END ==
LOC: M SFHCADAM 11:08
DX: R63.4 Abnormal weight loss (principal)
CPT/HCPCS: 80053